=== PATIENT | male | born 1985 | race Caucasian/White ===

== ENCOUNTER 2016-10-17 13:06 | Emergency (ER) | payer OTHER ==
[~2016-10-17] VITALS: Ht 180.3 cm; Wt 90.7 kg
[~2016-10-17 13:06] MED LIST: BENADRYL25 MG PO; CENTRUM SILVER1 EAC2 PO; CLARITIN10 MG PO; COLACE100 MG PO; HYDROCODON-ACE1 EAC7 PO; NAPROSYN250 MG PO; NORCO 5-325 TA1 EACH PO; NORCO 7.5-3251 EACH PO; PREDNISONE 20 M20 MG PO; ROBAXIN 750 MG750 M1 PO; THERA-M CAPLET1 EACH PO; VITAMIN E400 UNIT PO; VITAMINC500 PO; ZOFRAN4 MG PO; ZPAK PO; ZYRTEC10 M2 PO; ZYRTEC10 MG PO
[2016-10-17] MEDS ORDERED: PROBIOTIC1 EAC1 PO (13:11)
[2016-10-17] MEDS ORDERED: VITAMIN E400 UNIT PO (13:12)
[2016-10-17] MEDS ORDERED: CETIRIZINE HCL5 MG PO (13:12)
[2016-10-17] MEDS ORDERED: EPIPEN 2-P0.3 MG/0.3 IM (16:06)
[2016-10-17] MEDS ORDERED: PEPCID20 MG PO (16:06)
[2016-10-17] MEDS ORDERED: DIPHENHIST50 MG PO (16:06)
[2016-10-17] MEDS ORDERED: DELTASONE20 MG PO (16:06)
== END 2016-10-17 17:22 | disposition home or self-care (01) ==
LOC: ER 13:06
DX: T78.49XA Other allergy, initial encounter (principal); F14.10 Cocaine abuse, uncomplicated; F12.10 Cannabis abuse, uncomplicated; F11.10 Opioid abuse, uncomplicated; Z86.2 Personal history of diseases of the blood and blood-forming organs and certain disorders involving the immune mechanism; Z86.018 Personal history of other benign neoplasm; Z88.0 Allergy status to penicillin; Z91.040 Latex allergy status; Z87.891 Personal history of nicotine dependence; X58.XXXA Exposure to other specified factors, initial encounter

== ENCOUNTER 2021-09-18 13:13 | Emergency (ER) | payer OTHER ==
[~2021-09-18] VITALS: Ht 182.9 cm; Wt 86.2 kg
[~2021-09-18 13:13] MED LIST changes: +CETIRIZINE HCL5 MG PO; +DELTASONE20 MG PO; +DIPHENHIST50 MG PO; +EPIPEN 2-P0.3 MG/0.3 IM; +PEPCID20 MG PO; +PROBIOTIC1 EAC1 PO
[2021-09-18 14:10] LABS: URINE BILIRUBIN NEGATIVE (Negative); URINE BLOOD TRACE (Negative); URINE CLARITY CLEAR; URINE COLOR YELLOW; URINE GLUCOSE-RANDOM* TRACE (Negative); URINE KETONES NEGATIVE (Negative); URINE LEUKOCYTES-REFLEX NEGATIVE (Negative); URINE NITRITE-REFLEX NEGATIVE (Negative); URINE PROTEIN (DIPSTICK) NEGATIVE (Negative); URINE UROBILINOGEN 0.2 E.U./dl (0.2-1.0)
[2021-09-18 14:30] LABS: ABSOLUTE NEUTROPHILS 7.6 thou/uL (1.4-8.2); BASOPHILS 0.8 % (0.0-2.0); EOSINOPHILS 1.4 % (0.0-3.0); HEMATOCRIT 36.7 % (42.0-52.0); HEMOGLOBIN 12.2 gm/dL (14.0-18.0); LYMPHOCYTES 14.2 % (24.0-44.0); MCH 28.4 pg (26.0-34.0); MCHC 33.1 g/dL (28.0-37.0); MCV 85.7 fL (80.0-100.0); MONOCYTES 9.9 % (1.0-8.0); PLATELET COUNT 131 thou/uL (150-400); POLYS 73.7 % (36.0-66.0); RBC 4.28 mil/uL (4.50-6.00); RDW 14.1 % (10.5-14.5); WBC 10.3 thou/uL (4.0-11.0)
[2021-09-18 15:34] LABS: CALCIUM 8.2 mg/dL (8.5-10.1); CREATININE 0.9 mg/dL (0.7-1.3)
[2021-09-18 15:35] LABS: POTASSIUM 3.5 mmol/L (3.5-5.1)
[2021-09-18 15:40] LABS: ALBUMIN 2.5 g/dL (3.4-5.0); TOTAL BILIRUBIN 0.4 mg/dL (0.2-1.0); TOTAL PROTEIN 6.7 g/dL (6.4-8.2)
[2021-09-18] MEDS ORDERED: LEVSIN0.125 MG PO (16:07)
[2021-09-18] MEDS ORDERED: ZOFRAN ODT4 MG PO (16:07)
[2021-09-18] MEDS ORDERED: NEXIUM40 MG PO (16:07)
[2021-09-18 16:19] VITALS: BP 134/67
== END 2021-09-18 16:20 | disposition home or self-care (01) ==
LOC: ER 13:13
PROVIDERS: Emergency Medicine
DX: K85.90 Acute pancreatitis without necrosis or infection, unspecified (principal); R10.12 Left upper quadrant pain; R11.2 Nausea with vomiting, unspecified; F12.90 Cannabis use, unspecified, uncomplicated; Z87.891 Personal history of nicotine dependence; Z91.041 Radiographic dye allergy status; Z88.0 Allergy status to penicillin; Z79.899 Other long term (current) drug therapy; Z98.890 Other specified postprocedural states